=== PATIENT | female | born 1990 | race Two or more races ===

== ENCOUNTER 2023-12-02 06:49 | Emergency (ER) | payer BC, SELFPAY ==
[2023-12-02 06:50] VITALS: BP 135/93
--- NOTE | 2023-12-02 07:47 | ED.GENMED ---
History of Present Illness
General
Chief Complaint: Musculo-Skeletal Complaint
Source: patient
Exam Limitations: none
Time Seen by Provider: 12/02/23 07:21
Nursing documentation reviewed up to this point in time: agreed with
History of Present Illness
History of Present Illness:
33-year-old female without significant past medical history presenting to the emergency department today with concern left-sided posterior neck pain and swelling that she noticed over the past day. Denies any fevers numbness weakness change in
vision.
Past History
Past History
ED Past Medical History: None; Negative Asthma, HTN, Hypercholesterolemia or NIDDM
ED Past Surgical History: None
Social History
Tobacco: Non-smoker
Alcohol: Occasional
Personal:
Living: with family
Review of Systems
Review of Systems
Allergies reviewed?: Yes
All Other Systems: ROS reviewed and negative except as documented in HPI and ROS
Phy Exam
Physical Exam
Physical Exam:
GENERAL: Alert , in no apparent distress
EYE: pupils equal and reactive
NECK: Swelling to the left side of posterior neck no redness or warmth mild tenderness to palpation. Supple, no significant adenopathy.
ENT: o/p clr, mmm.
CARDIAC: Regular rate and rhythm .
LUNGS: Clear breath sounds bilaterally, no acute respiratory distress, no wheezes/rales/rhonchi
ABDOMEN: Soft, without focal tenderness, no r/g, no cvat
NEUROLOGICAL: Alert and oriented, no focal neuro deficits
SKIN: Warm and dry, skin intact.
MUSCULOSKELETAL: No edema, well perfused.
PSYCH: Normal and appropriate interaction.
Course
Orders/Labs/Results
Orders:
Orders
12/02/23 07:35
CT Neck With Iv Contrast Urgent
Comment:
Reason For Exam: lump to back of neck x2 days
12/02/23 07:36
Test Result ONCE
12/02/23 07:53
BMP [Basic Metabolic Panel] Urgent
Beta Hcg Serum Qualitative Screen [HCG, Serum Qualitative Screen] Urgent
CBC/With Diff [Complete Blood Count/With Diff] Urgent
Abnormal Lab Results
12/02/23
07:53
RBC 5.62 H 10^6/uL
(4.20-5.40)
Hgb 11.4 L g/dL
(12.0-16.0)
Hct 36.3 L %
(37.0-47.0)
MCV 64.6 L fL
(81.0-99.0)
MCH 20.3 L pg
(27.0-31.0)
MCHC 31.4 L g/dL
(33.0-37.0)
RDW 15.7 H %
(11.5-14.5)
MPV 10.7 H fL
(7.4-10.4)
Glucose 120 H mg/dl
(70-99)
12/02/23 07:53
12/02/23 07:53
Vital Signs
Initial and Last Documented VS:
Initial Vital Signs
Temp Pulse Resp BP Pulse Ox
98.5 F 87 16 135/93 99
12/02/23 06:50 12/02/23 06:50 12/02/23 06:50 12/02/23 06:50 12/02/23 06:50
Last Documented Vital Signs
Temp Pulse Resp BP Pulse Ox
98.5 F 83 20 108/82 100
12/02/23 06:50 12/02/23 09:00 12/02/23 09:00 12/02/23 09:00 12/02/23 09:00
MDM/Problems Addressed
MDM/Problems Addressed:
33-year-old female presenting to the emergency department concerns of a lump to the back of her neck also ongoing pain to the area. Here is not red or warm does not seem to be consistent with infection. Plan to scan for further assessment
considering source of swelling is unclear. CT scan was performed no signs of emergent pathology stable for discharge. Return precautions given.
*Critical Care Note
Total Time (30-74mins, 75-104mins- exclusive of procedures): Not Applicable
ED Attending Note
-
Portions of this chart may have been created with voice recognition software.� Occasional wrong word or��sound alike� substitutions may have occurred due to the inherent limitations of voice recognition software.
Discharge Plan
Departure
Patient Disposition: Home (Routine Discharge)
Date of Disposition: 12/02/23
Time of Disposition: 10:07
Patient with high blood pressure during this ER visit?: No
Condition: Good
Covid-19: Not Applicable
Discharge Problem:
Neck swelling
Instructions: Muscle Strain (DC)
Referrals:
Cesar Wells PA-C [Family Provider] -
Activity Restrictions/Additional Instructions:
You came to the emergency department today with concerns of swelling to your neck. You had a CT scan that did not show any emergent findings. Please follow closely with the primary care doctor. Return to the emergency department for any
worsening, new or concerning symptoms.
Interventions
Interventions:
*Risk Screen - Suicide Last Done: 12/02/23 08:11
*General Assessment Last Done: 12/02/23 06:50
*Neglect/Abuse Screening Last Done: 12/02/23 08:11
ED- Fall Risk Assessment Last Done: 12/02/23 08:11
*ED COVID-19 Vaccine History Last Done: 12/02/23 08:11
ED-Musculoskeletal Assessment Last Done: 12/02/23 08:11
Discharge Date and Time
Print Language: LITHUANIAN
[2023-12-02 08:11] VITALS: BMI 24.3
[2023-12-02 08:19] LABS: HCG, Serum Qualitative Screen Negative
[2023-12-02 08:21] LABS: % Basophils 0.7 % (0-2); % Eosinophils 0.7 % (0-6); % Immature Granulocytes 0.5 % (0-0.5); % Monocytes 6.4 % (1.7-9.3); % Neutrophils 60.7 % (42.2-75.2); Absolute Lymphocytes 1.8 10^3/uL (1.2-3.4); Absolute Monocytes 0.4 10^3/uL (0.1-0.6); Absolute Neutrophils 3.4 10^3/uL (1.4-6.5); Hematocrit 36.3 % (37.0-47.0); Hemoglobin 11.4 g/dL (12.0-16.0); Mean Corp Hgb Conc. 31.4 g/dL (33.0-37.0); Mean Corpuscular Hgb 20.3 pg (27.0-31.0); Mean Corpuscular Volume 64.6 fL (81.0-99.0); Mean Platelet Volume 10.7 fL (7.4-10.4); Nucleated Red Blood Cells % 0 %; Platelet Count 285 10^3/uL (130-400); Red Blood Cell Count 5.62 10^6/uL (4.20-5.40); Red Cell Dist. Width 15.7 % (11.5-14.5); White Blood Cell Count 5.6 10^3/uL (4.8-10.8)
[2023-12-02 08:27] LABS: Blood Urea Nitrogen 12 mg/dl (7-17); Calcium 9.9 mg/dl (8.4-10.2); Carbon Dioxide 26 mmol/L (22-30); Chloride 104 mmol/L (98-107); Estimated Creatinine Clearance 109 ml/min; Glucose 120 mg/dl (70-99); Potassium 4.3 mmol/L (3.5-5.1); Sodium 138 mmol/L (135-145); eGFR > 60.00
[2023-12-02 09:00] VITALS: BP 108/82
[2023-12-02 10:25] VITALS: BP 152/81
== END 2023-12-02 10:30 | disposition home or self-care (01) ==
LOC: EMR 06:49
PROVIDERS: Physician Assistant; EMERGENCY PHYSICIAN Emergency Medicine; FAMILY PHYSICIAN Physician Assistant Medical
DX: R22.1 Localized swelling, mass and lump, neck (principal); M54.2 Cervicalgia
CPT/HCPCS: 99285; 70491; 80048; 84703; 85025; Q9967

== ENCOUNTER 2025-02-05 04:00 | Emergency (ER) | payer BC, SELFPAY ==
[2025-02-05 04:05] VITALS: BP 114/79
[2025-02-05 04:32] LABS: Hematocrit 31.9 % (37.0-47.0); Hemoglobin 10.0 g/dL (12.0-16.0); Mean Corp Hgb Conc. 31.3 g/dL (33.0-37.0); Mean Corpuscular Volume 65.6 fL (81.0-99.0); Nucleated Red Blood Cells % 0 %; Platelet Count 341 10^3/uL (130-400); Red Cell Dist. Width 15.6 % (11.5-14.5)
[2025-02-05 04:50] LABS: ALT (SGPT) 19 U/L (0-35); AST (SGOT) 17 U/L (14-36); Albumin 4.0 g/dl (3.5-5.0); Alkaline Phosphatase 53 U/L (38-126); Blood Urea Nitrogen 7 mg/dl (7-17); Calcium 9.5 mg/dl (8.4-10.2); Carbon Dioxide 25 mmol/L (22-30); Chloride 106 mmol/L (98-107); Glucose 97 mg/dl (70-99); Potassium 3.9 mmol/L (3.5-5.1); Sodium 138 mmol/L (135-145); Total Protein 7.0 g/dl (6.3-8.2); eGFR > 60.00
--- NOTE | 2025-02-05 07:45 | ED.GENMED ---
History of Present Illness
General
Chief Complaint: Problems
Time Seen by Provider: 02/05/25 07:17
History of Present Illness
History of Present Illness:
34-year-old female presents to the emergency department for evaluation of waxing and waning lower abdominal pain beginning yesterday. Initially was left lower quadrant and right lower quadrant pain. She reports chills but no fever, no nausea or
vomiting. She is currently 9 weeks gestational age, undergoing IVF treatments thus has had numerous confirmatory ultrasounds of intrauterine . Denies vaginal bleeding or discharge.
Past History
Past History
ED Past Medical History: None; Negative Asthma, HTN, Hypercholesterolemia or NIDDM
ED Past Surgical History: None
Social History
Tobacco: Non-smoker
Alcohol: Occasional
Personal:
Living: with family
Review of Systems
Review of Systems
Allergies reviewed?: Yes
All Other Systems: ROS reviewed and negative except as documented in HPI and ROS
Phy Exam
Physical Exam
Physical Exam:
GEN: Well appearing, NAD, WDWN
HEENT: Oral mucosa moist, no scleral icterus
Cardiac: Regular rate
Lung: No respiratory distress, no tachypnea
Abdomen: Soft, moderate right lower quadrant tenderness, no rigidity
MSK: No gross deformity or injuries
Skin: Good color, no pallor or jaundice, no rashes
Neuro: AO x3, moves all extremities freely
Psych: Calm, cooperative
Course
Orders/Labs/Results
Orders:
Orders
02/05/25 04:24
Beta HCG Quantitative Urgent
Is this a screen?: No
Comment: patient is 9 weeks ;ADDON
Complete Blood Count/With Diff Urgent
Comprehensive Metabolic Panel Urgent
02/05/25 07:22
Add On- LAB Urgent
Tests Added?: beta HCG quant
02/05/25 07:44
US 1st Trimester Urgent
Reason For Exam: 1st trimester lower abd pain
02/05/25 07:47
US Abdomen - Appendix Only Urgent
Comment:
Reason For Exam: RLQ pain
02/05/25 11:20
Urine Culture Urgent
JEANNA Source: Urine
Specimen Description:
Obtained by: [facility]
Date Specimen was Collected: 02/05/25
Time Specimen was Collected: 11:19
Abnormal Lab Results
02/05/25
04:24
Hgb 10.0 L g/dL
(12.0-16.0)
Hct 31.9 L %
(37.0-47.0)
MCV 65.6 L fL
(81.0-99.0)
MCH 20.6 L pg
(27.0-31.0)
MCHC 31.3 L g/dL
(33.0-37.0)
RDW 15.6 H %
(11.5-14.5)
Abs Immat Gran (auto) 0.1 H 10^3/uL
(0-0.05)
Absolute Neuts (auto) 7.1 H 10^3/uL
(1.4-6.5)
Absolute Monos (auto) 0.8 H 10^3/uL
(0.1-0.6)
Immature Gran % 0.9 H %
(0-0.5)
Creatinine 0.5 L mg/dL
(0.6-1.0)
02/05/25 04:24
02/05/25 04:24
Vital Signs
Initial and Last Documented VS:
Initial Vital Signs
Temp Pulse Resp BP Pulse Ox
99 F 84 20 114/79 99
02/05/25 04:05 02/05/25 04:05 02/05/25 04:05 02/05/25 04:05 02/05/25 04:05
Last Documented Vital Signs
Temp Pulse Resp BP Pulse Ox
98.6 F 74 16 98/67 99
02/05/25 08:40 02/05/25 08:40 02/05/25 08:40 02/05/25 08:40 02/05/25 08:40
Information
Weeks gestation: Weeks: (9)
Location: Location: ([facility])
MDM/Problems Addressed
MDM/Problems Addressed:
Unclear etiology to the patient's pain. She has no leukocytosis or systemic symptoms suspicious for acute abdomen, appendix ultrasound negative and ultrasound reveals no acute pathology. Labs reassuring. Will send urine culture for
completeness however she has no lower urinary tract voiding symptoms at this time
*Pulse Oximetry
SaO2: 99
Oxygen Mode of Delivery: Room air
Patient hypoxic: no
*Critical Care Note
Total Time (30-74mins, 75-104mins- exclusive of procedures): Not Applicable
ED Attending Note
-
Portions of this chart may have been created with voice recognition software.� Occasional wrong word or��sound alike� substitutions may have occurred due to the inherent limitations of voice recognition software.
Discharge Plan
Departure
Patient Disposition: Home (Routine Discharge)
Date of Disposition: 02/05/25
Time of Disposition: 10:32
Patient with high blood pressure during this ER visit?: No
Discharge Problem:
Lower abdominal pain
Instructions: Abdominal Pain
Referrals:
Robyn Mooney CRNP [Family Provider]
Activity Restrictions/Additional Instructions:
Return to the ER if your pain worsens or you develop vaginal bleeding
Your ultrasound shows no signs of distress or complications at this time
Interventions
Interventions:
*Risk Screen - Suicide Last Done: 02/05/25 04:05
*General Assessment Last Done: 02/05/25 04:05
*Neglect/Abuse Screening Last Done: 02/05/25 04:05
*ED- Fall Risk Assessment Last Done: 02/05/25 04:05
*ED COVID-19 Vaccine History Last Done: 02/05/25 04:05
*ED Influenza Vaccine History Last Done: 02/05/25 04:05
*Nursing Disposition Last Done: 02/05/25 11:30
ED-Female Genitourinary Assessment Last Done: 02/05/25 08:42
Discharge Date and Time
Discharge Date/Time: 02/05/25 11:20
Print Language: SINHALA
[2025-02-05 08:39] VITALS: BMI 30.1
[2025-02-05 08:40] VITALS: BP 98/67
[2025-02-05 10:42] LABS: Beta HCG Quantitative 104910.00 mIU/ml
== END 2025-02-05 11:20 | disposition home or self-care (01) ==
LOC: EMR 04:00
PROVIDERS: Student in an Organized Health Care Education/Training Program; EMERGENCY PHYSICIAN Emergency Medicine; FAMILY PHYSICIAN Nurse Practitioner Obstetrics & Gynecology
DX: O99.891 Other specified diseases and conditions complicating pregnancy (principal); R10.31 Right lower quadrant pain; Z3A.09 9 weeks gestation of pregnancy
CPT/HCPCS: 99284; 76705; 76801; 80053; 84702; 85025; 87086